=== PATIENT | female | born 1980 | race Caucasian/White ===

== ENCOUNTER 2018-09-17 21:25 | Emergency (ER) | payer OTHER ==
[~2018-09-17] VITALS: Ht 172.7 cm; Wt 99.8 kg
[2018-09-17] MEDS ORDERED: Ketorolac 60mg Inj IM ONE (22:45)
[2018-09-17] MEDS ORDERED: Albuterol/Ipratropium 3ml neb HHN ONE (23:00)
[2018-09-17] MEDS ORDERED: PERCOCET 5-3251 EACH ORAL (23:41)
[2018-09-17] MEDS ORDERED: ALBUTEROL SULF8.5 GM INH (23:41)
[2018-09-17 23:58] VITALS: BP 144/91
--- NOTE | 2018-09-18 05:35 | Emergency Room Report ---
History of Present Illness General Chief Complaint: Back Pain-No Injury Source: Patient Present Illness HPI Patient is a 38-year-old female presented after increased right-sided back pain. Patient reports having a recent increased cough. She had been taking oral steroids. Patient reports having increased pain to the right side of her back. The pain is sharp in nature. She denies any fever. Patient had been taking albuterol. Allergies: Coded Allergies: SULFUR (Verified Allergy, Unknown, 09/17/18) Patient History Past Medical History: see triage record Last Menstrual Period: 09/02/18 Now: No Reviewed Nursing Documentation: PMH: Agreed; PSxH: Agreed Nursing Documentation-PMH Past Medical History: No Stated History Review of Systems All Other Systems: negative except mentioned in HPI Physical Exam Vital Signs Date Time Temp Pulse Resp B/P (MAP) Pulse Ox O2 Delivery O2 Flow Rate FiO2 09/17/18 21:51 97.7 96 20 144/91 95 Room Air 09/17/18 23:01 21 General Appearance: well appearing, no apparent distress, alert, GCS 15, mild distress Head: normocephalic, atraumatic ENT: hearing grossly normal, normal voice Neck: full range of motion, supple Respiratory: speaking full sentences, wheezing Cardiovascular #1: normal peripheral pulses, regular rate, rhythm, no edema Gastrointestinal: normal inspection Musculoskeletal: no calf tenderness, other - right chest wall tenderness Neurologic: normal inspection, alert, oriented x3, responsive, community marketing manager III-XII nml as tested, normal gait Psychiatric: mood/affect normal Skin: no rash Medical Decision Making Diagnostic Impression: Primary Impression: Fractured rib ER Course Patient presented for right-sided chest pain. Differential diagnosis included was not limited to pneumonia, pulmonary embolism, fracture, pneumo thorax among others. The right-sided rib series ordered due to patient's character pain. The chest x-ray for views interpreted by me showed a nondisplaced fracture of the 11th rib posteriorly. The patient given pain medications in emergency department. The patient appears to be stable there is no evident pneumothorax.The patient is advised to follow up with primary care doctor in 1- 2 days. Patient is advised to return if any worsening condition or if any changes in status that are concerning. This report is dictated with [employer] digital media planner software which may occasionally lead to discrepancies related to use of this software. Last Vital Signs Date Time Temp Pulse Resp B/P (MAP) Pulse Ox O2 Delivery O2 Flow Rate FiO2 09/17/18 23:58 97.7 96 20 144/91 95 Room Air 09/17/18 23:12 21 Status: improved Disposition: HOME, SELF-CARE Condition: Stable Scripts Albuterol Sulfate* (ALBUTEROL SULFATE MDI*) 8.5 Gm Hfa.aer.ad 2 PUFF INH Q4H, #1 INH 0 Refills Prov: Kirit Vee MD 09/17/18 Oxycodone/Acetaminophen 5-325* (PERCOCET 5-325 MG TABLET*) 1 Each Tablet 1 TAB ORAL Q4H PRN for For Pain, #20 TAB Prov: Kirit Vee MD 09/17/18 Referrals: NOT CHOSEN [facility]/,REFERRING (PCP) Patient Instructions: Rib Fracture Kirit Vee MD Sep 18, 2018 05:35
--- NOTE | 2018-09-18 10:58 | Diagnostic Imaging Report ---
Indication: Right lower rib pain Technique: One view of the chest, 2 views of the right ribs Comparison: none Findings: The lungs and pleural spaces are clear. There is a nondisplaced fracture of the posterior right 11th rib. No other acute fractures. No pneumothorax. Impression: Positive for right 11th rib fracture No acute process otherwise This agrees with the preliminary interpretation provided in the electronic medical record by the emergency room physician
== END 2018-09-17 23:58 | disposition home or self-care (01) ==
LOC: EMR 22:47
DX: S22.31XA Fracture of one rib, right side, initial encounter for closed fracture (principal); X58.XXXA Exposure to other specified factors, initial encounter; Y92.538 Other ambulatory health services establishments as the place of occurrence of the external cause; M54.9 Dorsalgia, unspecified; R05 Cough; Z88.2 Allergy status to sulfonamides
CPT/HCPCS: 94640; 94664; 96374; 99283; J7620